=== PATIENT | female | born 1940 | race Caucasian/White ===

== ENCOUNTER → 2016-10-22 | Outpatient (CLI) | payer OTHER ==
[2016-10-22 13:00] LABS: BASO % 0.9 %; BASO ABS # 0.05 K/uL (0-0.2); COMPLETE YES; EOS % 2.4 %; HEMATOCRIT 35.2 % (37-47); IG% 0.2 %; LYMPH % 38.8 %; LYMPH ABS # 2.07 K/uL (1.2-3.4); MEAN CELL VOLUME 87.8 fL (80-100); MEAN CORPUSCULAR HEMOGLOBIN 29.7 pg (25-34); MEAN CORPUSCULAR HGB CONC 33.8 g/dl (32-36); MEAN PLATELET VOLUME 10.5 fL (7.4-10.4); MONO % 10.7 %; PLATELET COUNT 252 K/uL (130-400); RED BLOOD COUNT 4.01 M/uL (4.2-5.4); WHITE BLOOD COUNT 5.34 K/uL (4.8-10.8)
[2016-10-22 13:16] LABS: BLOOD UREA NITROGEN 17 mg/dl (7-18); BUN/CREATININE RATIO 19.4 (10-20); CALCIUM 9.2 mg/dl (8.5-10.1); CARBON DIOXIDE 27 mmol/L (21-32); CHLORIDE 105 mmol/L (98-107); CREATININE 0.86 mg/dl (0.60-1.20); GLUCOSE 162 mg/dl (70-99); PHOSPHORUS 3.6 mg/dl (2.5-4.9); POTASSIUM 3.7 mmol/L (3.5-5.1); SODIUM 142 mmol/L (136-145)
[2016-10-22 13:30] LABS: ESTIMATED AVERAGE GLUCOSE 148 mg/dl; HA1C FLAG Normal (Normal)
== END | disposition home or self-care (01) ==
LOC: C.LABMFLN 10:15
PROVIDERS: ATTEND Family Medicine
DX: E11.9 Type 2 diabetes mellitus without complications (principal); D64.9 Anemia, unspecified

== ENCOUNTER → 2017-01-22 | Outpatient (CLI) | payer OTHER ==
[2017-01-21 14:03] LABS: ESTIMATED AVERAGE GLUCOSE 151 mg/dl; HA1C FLAG Normal (Normal)
[2017-01-21 15:41] LABS: ALT/SGPT 31 U/L (12-78); AST/SGOT 20 U/L (15-37); BLOOD UREA NITROGEN 22 mg/dl (7-18); BUN/CREATININE RATIO 26.4 (10-20); CALCIUM 9.3 mg/dl (8.5-10.1); CARBON DIOXIDE 30 mmol/L (21-32); CHLORIDE 107 mmol/L (98-107); CREATININE 0.83 mg/dl (0.60-1.20); GLUCOSE 154 mg/dl (70-99); POTASSIUM 3.7 mmol/L (3.5-5.1); SODIUM 142 mmol/L (136-145)
[2017-01-21 15:42] LABS: ALB/GLOB RATIO 1.1 (0.9-2); ALKALINE PHOSPHATASE 65 U/L (45-117)
== END | disposition home or self-care (01) ==
LOC: C.LABMFLN 08:17
PROVIDERS: ATTEND Family Medicine
DX: E11.9 Type 2 diabetes mellitus without complications (principal)

== ENCOUNTER → 2017-05-06 | Outpatient (CLI) | payer OTHER ==
[2017-05-06 13:40] LABS: ESTIMATED AVERAGE GLUCOSE 169 mg/dl; HA1C FLAG Normal (Normal)
== END | disposition home or self-care (01) ==
LOC: C.LABMFLN 09:20
PROVIDERS: ATTEND Family Medicine
DX: E11.9 Type 2 diabetes mellitus without complications (principal)

== ENCOUNTER → 2017-08-26 | Outpatient (CLI) | payer OTHER ==
[2017-08-26 13:08] LABS: ESTIMATED AVERAGE GLUCOSE 157 mg/dl; HA1C FLAG Normal (Normal)
[2017-08-26 13:40] LABS: BLOOD UREA NITROGEN 20 mg/dl (7-18); BUN/CREATININE RATIO 23.6 (10-20); CALCIUM 9.2 mg/dl (8.5-10.1); CARBON DIOXIDE 29 mmol/L (21-32); CHLORIDE 106 mmol/L (98-107); CREATININE 0.85 mg/dl (0.60-1.20); GLUCOSE 108 mg/dl (70-99); POTASSIUM 3.7 mmol/L (3.5-5.1); SODIUM 138 mmol/L (136-145)
[2017-08-26 13:51] LABS: CHOLESTEROL 148 mg/dl (0-200); HDL CHOLESTEROL 49 mg/dl; LDL CHOLESTEROL CALCULATED 76 mg/dl; TRIGLYCERIDES 117 mg/dl (0-150); VERY LOW DENSITY LIPOPROT CALC 23 mg/dl
== END | disposition home or self-care (01) ==
LOC: C.LABMFLN 07:57
PROVIDERS: ATTEND Family Medicine
DX: E11.9 Type 2 diabetes mellitus without complications (principal); E03.9 Hypothyroidism, unspecified; E78.5 Hyperlipidemia, unspecified

== ENCOUNTER → 2017-12-03 | Outpatient (CLI) | payer OTHER ==
[2017-12-03 18:12] LABS: BASO % 0.6 %; BASO ABS # 0.04 K/uL (0-0.2); EOS % 2.5 %; EOS ABS # 0.17 K/uL (0-0.5); HEMATOCRIT 35.2 % (37-47); HEMOGLOBIN 11.6 g/dL (12.0-16.0); IG# 0.01 K/uL (0.00-0.02); LYMPH % 39.3 %; LYMPH ABS # 2.63 K/uL (1.2-3.4); MEAN CELL VOLUME 90.5 fL (80-100); MEAN CORPUSCULAR HEMOGLOBIN 29.8 pg (25-34); MEAN PLATELET VOLUME 10.8 fL (7.4-10.4); MONO % 8.2 %; MONO ABS # 0.55 K/uL (0.11-0.59); NEUT % 49.3 %; PLATELET COUNT 253 K/uL (130-400); RED CELL DISTRIBUTION WIDTH SD 42.7 fL (36.4-46.3)
[2017-12-03 18:35] LABS: ALBUMIN 3.6 gm/dl (3.4-5.0); ALT/SGPT 39 U/L (12-78); BLOOD UREA NITROGEN 21 mg/dl (7-18); CALCIUM 9.5 mg/dl (8.5-10.1); CARBON DIOXIDE 29 mmol/L (21-32); CREATININE 0.83 mg/dl (0.60-1.20); GLUCOSE 80 mg/dl (70-99); POTASSIUM 3.8 mmol/L (3.5-5.1); SODIUM 141 mmol/L (136-145)
[2017-12-03 18:38] LABS: ALKALINE PHOSPHATASE 67 U/L (45-117); AST/SGOT 26 U/L (15-37); TOTAL PROTEIN 7.1 gm/dl (6.4-8.2)
[2017-12-04 06:51] LABS: HEMOGLOBIN A1C 7.7 % (4.5-5.6)
== END | disposition home or self-care (01) ==
LOC: C.LABMFLN 14:52
PROVIDERS: ATTEND Family Medicine
DX: E11.9 Type 2 diabetes mellitus without complications (principal)

== ENCOUNTER 2022-03-22 05:24 | Observation (INO) ==
--- NOTE | 2022-02-21 11:34 | PAT Medication Instructions ---
Medication Instructions Date of Service February 21, 2022 Home Medications Medication Instructions Recorded lancets 33 gauge (Elizabeth Trejo #100 ea 04/28/19 Lancets) blood sugar diagnostic (Bernadetteuch #100 ea 02/16/21 Ultra Blue Test Strip) glimepiride 1 mg tablet 1 mg PO .COMPLEX #450 tab 10/16/21 calcium carbonate 600 mg-vitamin D3 5 mcg (200 unit) tablet 1 tab PO HS glimepiride 1 mg tablet 1 mg PO .COMPLEX amlodipine 2.5 mg tablet 2.5 mg PO QAM atorvastatin 40 mg tablet 40 mg PO QAM levothyroxine 75 mcg tablet 75 mcg PO QAM losartan 100 mg tablet 100 mg PO QAM metformin 500 mg tablet,extended release 24hr 1,000 mg PO QPM DO NOT take the morning of surgery losartan 100 mg tablet 100 mg PO QAM glimepiride 1 mg tablet 1 mg PO .COMPLEX Take morning of surgery With a small sip of water, OTHERWISE NOTHING TO EAT OR DRINK AFTER MIDNIGHT: amlodipine 2.5 mg tablet 2.5 mg PO QAM atorvastatin 40 mg tablet 40 mg PO QAM levothyroxine 75 mcg tablet 75 mcg PO QAM Take evening before surgery calcium carbonate 600 mg-vitamin D3 5 mcg (200 unit) tablet 1 tab PO HS glimepiride 1 mg tablet 1 mg PO .COMPLEX metformin 500 mg tablet,extended release 24hr 1,000 mg PO QPM Other Notes If you have any questions please call us at [phone] or [phone] or [phone] or [phone]
--- NOTE | 2022-02-23 13:16 | Anesthesiology Consultation ---
Date of Service February 23, 2022 Assessment & Plan (1) Encounter for pre-operative examination: - Patient acceptable risk for surgery pending surgeon-ordered PCP preop evaluation (03/09; [facility]). - COVID screening: Per assessment on 02/23: No known COVID-19 positive contacts or current COVID-19 related symptoms. Travel screen negative. Patient vaccinated. Surgeon arranging preop COVID testing. Awaiting results. - Check [facility] AM DOS Chart Review Chart Review: Patient seen in Pre Admission Testing Teaching & Discussion Pre-Anesthesia Teaching/Discussion Notes: Instructed NPO after midnight before surgery,except medications with 15 cc of water. Medication instructions provided according to the PAT guidelines. History Surgery Operation Date: 03/22/22 07:00 Proposed Procedures p Right Total Knee Arthroplasty - Rick Persaud MD Height/Weight Height: 5 ft 1 in Weight: 78 kg Allergies Allergy/AdvReac Type Severity Reaction Status Date / Time cefuroxime [From Ceftin] Allergy Severe Itching Verified 02/23/22 13:12 Penicillins Allergy Severe Hives Verified 02/21/22 09:54 Medications Home Medications Medication Instructions Recorded Confirmed Last Taken lancets 33 gauge (OneTouch Delica #100 ea 04/28/19 01/01/22 Unknown Lancets) calcium carbonate 600 mg-vitamin 1 tab PO HS tab 05/02/19 02/21/22 Unknown D3 5 mcg (200 unit) tablet blood sugar diagnostic (OneTouch #100 ea 02/16/21 01/01/22 Unknown Ultra Blue Test Strip) glimepiride 1 mg tablet 1 mg PO .COMPLEX #450 tab 10/16/21 02/21/22 Unknown amlodipine 2.5 mg tablet 2.5 mg PO QAM 02/21/22 02/21/22 Unknown atorvastatin 40 mg tablet 40 mg PO QAM 02/21/22 02/21/22 Unknown levothyroxine 75 mcg tablet 75 mcg PO QAM 02/21/22 02/21/22 Unknown losartan 100 mg tablet 100 mg PO QAM 02/21/22 02/21/22 Unknown metformin 500 mg tablet,extended 1,000 mg PO QPM 02/21/22 02/21/22 Unknown release 24hr Past Medical History Medical History Allergic rhinitis Anemia Benign essential hypertension Diabetes mellitus NIDDM Hyperlipidemia Hypothyroidism Exercise / Class Metabolic Activity II 4-5 Yardwork/Stairs/Walk up hill Past Family History Family History Mother Diabetes Myocardial infarction Father Myocardial infarction Other No family history of adverse response to anesthesia Denies family history of Ovarian cancer Prostate cancer Breast cancer Colorectal cancer Past Surgical History Surgical History H/O arthroscopy of knee Right History of cataract surgery R/L S/P colonoscopy Past Anesthesia History No Hx of Anesthesia Complications and No Family Hx of Anesthesia Complications History of PONV No Hx of PONV Social History Smoking Status: Never smoker Do You Dip or Chew Tobacco: No Hx Alcohol Use: No Hx Substance Use: No Review of Systems Patient denies chest pain, shortness of breath, dyspnea on exertion, fever, chills, cough, wheezing, palpitations. Physical Exam Vital Signs VITALS BP 149/70 P 86 TEMP 98.5 SP02 96%RA RESP 16 PHYSICAL Decreased cervical extension range of motion. Full TMJ range of motion. TMD 3 finger breaths Mallampati Score 3 Dentition: + implant (upper front) Lungs: clear throughout to auscultation Cardiac: regular rate and rhythm with occasional extra beats, no murmurs noted Spine: normal Carotid arteries: negative bruit Extremities: no edema Lab Results Anesthesia Preop Results Results Anesthesia Widget: WBC 5.94 K/uL (4.8-10.8) 02/23/22 Hgb 11.4 g/dL (12.0-16.0) L 02/23/22 Hct 35.4 % (37-47) L 02/23/22 Plt 288 K/uL (130-400) 02/23/22 Na 139 mmol/L (136-145) 02/23/22 K 4.0 mmol/L (3.5-5.1) 02/23/22 Cl 105 mmol/L (98-107) 02/23/22 CO2 27 mmol/L (21-32) 02/23/22 BUN 22 mg/dl (6-23) 02/23/22 Creat 0.87 mg/dl (0.6-1.2) 02/23/22 Glucose Level 154 mg/dl (70-99(Fasting)) H 02/23/22 PT 10.7 Seconds (9.0-12.0) 02/23/22 PTT 23.4 Seconds (21.0-31.0) 02/23/22 INR 1.0 (0.9-1.1) 02/23/22 TSH 1.918 uIu/ml (0.300-4.500) 01/01/22 HA1c 7.0 % (4.5-5.6) H 02/23/22 Urine Color Yellow 02/23/22 Urine Appearance Clear (Clear) 02/23/22 Urine pH 6.5 (4.5-7.5) 02/23/22 Urine Specific [place] 1.014 (1.000-1.030) 02/23/22 Urine Protein Negative (Negative) 02/23/22 Urine Glucose (UA) Negative (Negative) 02/23/22 Urine Ketones Negative (Negative) 02/23/22 Urine Blood Negative (Negative) 02/23/22 Urine Nitrite Negative (Negative) 02/23/22 Urine Bilirubin Negative (Negative) 02/23/22 Urine Urobilinogen Negative (Negative) 02/23/22 Urine Leukocyte Esterase Negative (Negative) 02/23/22 Blood Type A Positive 02/23/22 Antibody Screen NEGATIVE 02/23/22 Testing Electrocardiogram Date: 02/23/22 NSR with sinus arrhythmia at 68bpm. Chest X-Ray Date: 02/23/22 FINDINGS: Frontal and lateral radiographs of the chest demonstrate the cardiomediastinal silhouette to be within normal limits. The lungs are clear of alveolar opacities. There is no evidence for effusion bilaterally. There is no evidence for vascular congestion. There is no acute osseous pathology. IMPRESSION: No acute cardiopulmonary disease.
--- NOTE | 2022-03-21 06:51 | History & Physical Report ---
Date of Service March 21, 2022 Assessment & Plan (1) Primary osteoarthritis of right knee: Plan: Treatment options discussed with the patient. She has failed conservative measures. She would like to proceed with surgical intervention. Risks, benefits and alternatives to surgery including but not limited to infection, DVT, pain, stiffness, need for revision surgery, damage to blood vessels, damage to nerves, PE, , were discussed with the patient and they wish to proceed. Plan on right total knee arthroplasty scheduled for March 23 at [facility] with Dr. Persaud. Plan on aspirin 81 mg twice daily for 1 month postop for DVT prophylaxis. We will plan on outpatient PT. All questions answered. Patient will follow-up postop. History of Present Illness Chief Complaint: Right knee pain Primary Care Provider: Mallory Krishnamurthy MD 81-year-old female with past medical history significant for hypertension, DM 2, hypothyroidism who presents with ongoing right knee pain. Pain is interfering with with patient's daily activities. She has failed conservative measures. She would like to proceed with knee replacement. Patient denies headaches, sweats, fevers, chills, double vision, blurred vision, cough, sore throat, dysphagia, chest pain, sob, wheezing, n/v/d/c, numbness, tingling, fatigue, uri nary symptoms, mood disorders. ROS positive for right knee pain and stiffness. Allergies Allergy/AdvReac Type Severity Reaction Status Date / Time cefuroxime [From Ceftin] Allergy Severe Itching Verified 03/09/22 10:09 Penicillins Allergy Severe Hives Verified 03/09/22 10:09 Home Medications Medication Instructions Recorded Confirmed Type lancets 33 gauge ([employer] Delica #100 ea 04/28/19 03/09/22 Rx Lancets) calcium carbonate 600 mg-vitamin 1 tab PO HS 05/02/19 03/09/22 History D3 5 mcg (200 unit) tablet blood sugar diagnostic (Live Current Media[employer] #100 ea 02/16/21 03/09/22 Rx Ultra Blue Test Strip) amlodipine 2.5 mg tablet 2.5 mg PO QAM 02/21/22 03/09/22 History atorvastatin 40 mg tablet 40 mg PO QAM 02/21/22 03/09/22 History levothyroxine 75 mcg tablet 75 mcg PO QAM 02/21/22 03/09/22 History losartan 100 mg tablet 100 mg PO QAM 02/21/22 03/09/22 History metformin 500 mg tablet,extended 1,000 mg PO QPM 02/21/22 03/09/22 History release 24hr glimepiride 1 mg tablet See Rx Instructions PO .COMPLEX 02/26/22 03/09/22 Rx #540 tabs Past Med/Surg History Medical History Allergic rhinitis Anemia Benign essential hypertension Diabetes mellitus Hyperlipidemia Hypothyroidism Surgical History H/O arthroscopy of knee History of cataract surgery S/P colonoscopy Family History Mother Diabetes Myocardial infarction Father Myocardial infarction Other No family history of adverse response to anesthesia Denies family history of Ovarian cancer Prostate cancer Breast cancer Colorectal cancer Social History Smoking Status: Never smoker Second Hand Exposure: Yes; Hx Alcohol Use: No Hx Substance Use: No Preferred Language: Kiswahili Communication Ability: Effective Visual Impairment: Partially Limited Hearing Ability: Normal Culinary Assistant Required: No Beliefs That Will Affect Care: None marital status: Current Living Situation: Spouse current occupational status: retired Feels Safe at Home: Yes Childhood Exposure to Second-Hand Smoke: Yes caffeine: Yes (tea) Dental Care, Regularly: Yes Physical Activity Frequency: Daily Physical Activity Frequency Comment: walking Seatbelt Use: always Sunscreen Use: Yes Do you think of yourself as: straight/heterosexual Assistive Devices: Cane and Glasses Review of Systems All systems reviewed & are unremarkable except as noted in HPI & below Physical Exam Constitutional: well developed and well nourished; no acute distress Eyes: PERRL, conjunctivae normal, anicteric sclerae ENMT: external ear and nose normal, oropharynx normal Neck: trachea midline, no thyromegaly Respiratory: normal respiratory effort, lungs clear to auscultation Cardiovascular: RRR, no murmur, no edema Musculoskeletal: Right knee: Varus alignment. Tenderness medial joint line. Has mild crepitation with range of motion. Stable to valgus and varus stress test. Range of motion 20 to 100 degrees. Skin: no rashes, warm and dry Neurologic: patellar DTR's 2+ bilat, sensation intact Psychiatric: A+Ox3, euthymic affect Results & Data ([facility]) Diagnostic Findings Right knee radiographs demonstrates end-stage osteoarthritis with tricompartmental degenerative changes. Patient has [id number]-pj-msdx medial compartment.
[2022-03-22] MEDS ORDERED: TRANEXAMIC ACID 1,000 MG **IV Intra-op IV SCH (06:00)
[2022-03-22] MEDS ORDERED: GABAPENTIN 300 MG CAP PO SCH (06:00)
[2022-03-22] MEDS ORDERED: TRANEXAMIC ACID 1,000 MG **IV Pre-op IV SCH (06:00)
[2022-03-22] MEDS ORDERED: ROPIVACAINE 0.5% HCL/PF 150 MG, BUPIVACAINE 0.75% MPF 20 ML, EPINEPHrine 30MG/30ML (OR ... INFIL SCH (06:00)
[2022-03-22] MEDS ORDERED: METOCLOPRAMIDE HCL 10 MG TABLET PO SCH (06:00)
[2022-03-22] MEDS ORDERED: VANCOMYCIN HCL 1,250 MG in SODIUM CHLORIDE 0.9% 250 ML IV SCH ×2 (06:00→19:45)
[2022-03-22] MEDS ORDERED: ACETAMINOPHEN 500 MG TAB PO SCH (06:00)
[2022-03-22] MEDS ORDERED: CeleBREX 200 MG CAP PO SCH (06:00)
[2022-03-22] MEDS ORDERED: LR 500ML BOLUS, THEN 15ML/HR IV SCH (06:00)
[2022-03-22] MEDS ORDERED: FAMOTIDINE 20 MG TAB PO SCH (06:00)
[2022-03-22] MEDS ORDERED: BUPIVACAINE 0.5 % 5 MG/1 ML PF 10ML VIAL ONE (06:26)
[2022-03-22] MEDS ORDERED: ROPIVACAINE 0.5% 5 MG/ML 30 ML VIAL ONE (06:26)
[2022-03-22] MEDS ORDERED: LIDOCAINE 2% 2 ML VIAL/AMP(20MG/ML) INFIL ONE (06:46)
[2022-03-22] MEDS ORDERED: PHENYLEPHRINE 100MCG/ML 5ML SYR ONE (06:46)
[2022-03-22] MEDS ORDERED: fentaNYL citrate 100 MCG/2 ML VIAL ONE (06:46)
[2022-03-22] MEDS ORDERED: ePHEDrine sulfate 50 MG/ML AMP ONE (06:46)
[2022-03-22] MEDS ORDERED: MIDAZOLAM HCL 1 MG/ML 2ML VIAL ONE (06:46)
[2022-03-22] MEDS ORDERED: PROPOFOL IV EMULSION 10 MG/ML 20 ML VIAL IV ONE (06:46)
[2022-03-22] MEDS ORDERED: ORTHO JOINT ANESTHETIC ONE (06:58)
--- NOTE | 2022-03-22 06:58 | History & Physical Bridge Note ---
Date of Service March 22, 2022 History & Physical Bridge Note I have examined the patient, reviewed the History & Physical and in the interval since the performance of the History & Physical I have noted the following changes of clinical significance: no changes noted
[2022-03-22] MEDS ORDERED: HYDROmorphone INJ 1 MG/ML SYRINGE IV PRN (07:16)
[2022-03-22] MEDS ORDERED: ATROPINE SULFATE 0.1 MG/ML 10ML SYR IV PRN (07:16)
[2022-03-22] MEDS ORDERED: ePHEDrine sulfate 50 MG/ML AMP IV PRN (07:16)
[2022-03-22] MEDS ORDERED: fentaNYL citrate 100 MCG/2 ML VIAL IV PRN (07:16)
--- NOTE | 2022-03-22 08:56 | Operative Report ---
Post Operative Report Pre & Post Diagnosis Operation Date: 03/22/22 07:15 Pre-Op Diagnosis: Right Knee Osteoarthritis Post-Op Diagnosis: Right Knee Osteoarthritis I identified the patient and participated in the time-out.: Yes Procedure Operation Date: 03/22/22 07:15 Actual Procedures p Right Total Knee Arthroplasty(Right) - Rick Persaud MD Surgeon Rick Persaud MD Home Sales Service Professional Duong BAINS Estimated Blood Loss 5 Findings Consistent with Post-Op Diagnosis Specimens Bone cuts Drains 2 Hemovac Anesthesia Type MAC Spinal Regional Complications none Disposition Disposition: Recovery Room Indications 81-year-old female with chronic bilateral knee pain but right has more stiffness and pain than the left. X-rays show patellofemoral medial compartment osteoarthritis [id number] medial compartment. Patient has a varus knee with a flexion contracture Description of Procedure Patient was taken to the operating room placed supine on the operating table and anesthetized under spinal MAC regional block anesthesia. Exam under anesthesia demonstrated 15 degree flexion contracture with further flexion to 95 degrees and no instability and moderate obesity.. A pneumatic tourniquet was placed about the thigh of the right lower extremity. The right lower extremity was prepped and draped in usual sterile fashion. The leg was elevated exsanguinated with an Esmarch bandage and the pneumatic tourniquet was raised to 325 mm mercury. An anterior incision was made across the right knee. The skin was incised longitudinally subcutaneous flaps were elevated and an incision was made through the medial retinaculum extending up into the mid third of the quadriceps tendon and extended down to the medial tibial tubercle. Intra-articular findings demonstrated tricompartmental osteoarthritis chronic medial meniscus tear eburnated bone with ridging medial compartment moderate patellofemoral osteoarthritis. The knee was exposed by excising the infrapatellar fat pad, excising the meniscal remnants and anterior cruciate ligament. Any inflamed synovial tissue was resected. The fat pad over the anterior femur was resected for placement of the component in that area. The lateral synovial bands were release. The femur was exposed. The custom femoral cutting block was pinned in position. The distal femoral cutting block was applied. The distal femoral cut was made with the oscillating saw. I took an additional +2 off the distal femur cut due to flexion contracture. The size 6, 4-in-1 cutting block was placed. T he anterior and posterior chamfer cuts were made. The knee was extended and a subperiosteal peel lateral release was performed around the patella. The patella width was measured and width was reproduced using freehand cut technique. The 32 x 8.5 millimeter symmetrical patella was used. 3 drill holes are made for the pegs. The tibia was exposed. A custom tibial cutting block was positioned and drill holes were made for the cutting guide. Cutting guide was placed and the proximal cut was made with the oscillating saw. All osteophytes were resected. The lamina senior salesforce developer was used to assess ligamentous balance and the ligaments were balanced in extension and flexion. This required a medial release posterior medial release and pie crusting MCL to get balanced gaps. The tibia was reexposed and measured for a size E tibial component. This was externally rotated in line with the tibial tubercle and the fixation pins were drilled. The proximal tibia was fashioned with the drill and punch. The size 6 CR femoral trial was inserted. The trial MC inserts were used. The 12 mm insert gave balanced ligaments through full range of motion. The patella tracked centrally. the trials were removed. The orthomix anesthetic cocktail was injected per protocol. The knee was then copiously irrigated with pulsatile lavage saline solution. The final components were cemented with Refobacin bone cement. The final components were 6 right CR standard persona femoral component, right size E tibia, 12 MC polyethylene 4 tibia and 32 x 8.5 symmetrical polyethylene patella. After the cement cured with the knee in full extension the Betadine soak was used per protocol. The knee joint was copiously irrigated with pulsatile lavage saline solution . 2 drains were brought out laterally and connected to a Hemovac. The quadriceps tendon and medial retinaculum were closed with interrupted [id number] #1 Vicryl sutures. The knee was taken through a full range of motion and repair was secure. Range of motion was 0 through 125 degrees. The subcutaneous tissues were closed with 2-0 Vicryl sutures and skin was closed with rafa. Silverlon sterile dressing was applied and the patient tolerated the procedure well. Duong BAINS my physician court assistant participated as blood bank assistant and was integral part in all aspects of the procedure, he assisted in soft tissue retraction, instrument management ,leg positioning, the closure and will participate in the postoperative care of the patient. I attest to the content of the Intraoperative Record and any orders documented therein. Any exceptions are noted below.
--- NOTE | 2022-03-22 10:06 | Anesthesiology Progress Note ---
Date of Service March 22, 2022 Anesthesia Post Procedure Vital Signs Vital Signs: Temp Pulse Resp BP Pulse Ox O2 Del Method O2 Flow Rate 03/22/22 10:00 62 16 132/57 L 94 Nasal Cannula 2 03/22/22 09:50 36.4 C L 68 16 126/60 96 Nasal Cannula 2 03/22/22 09:40 68 18 115/59 L 96 Oxymask 5 03/22/22 09:30 36.1 C L 65 18 97/52 L 96 Oxymask 5 03/22/22 06:03 36.6 C 77 18 153/64 H 97 Room Air Transfer of Care Handoff Completed per policy Notes Mental Status: alert / awake / arousable and participated in evaluation Nausea / Vomiting: adequately controlled Pain: adequately controlled Airway Patency, RR, SpO2: stable & adequate BP & HR: stable & adequate Hydration State: stable & adequate Neuraxial Anesthesia: was administered and sensory block is resolving Anesthetic Complications: no major complications apparent and Pt Satisfied with anesthetic care
[2022-03-22] MEDS ORDERED: ONDANSETRON INJ 2 MG/ML 2 ML VIAL ONE (10:10)
[2022-03-22] MEDS ORDERED: ONDANSETRON INJ 2 MG/ML 2 ML VIAL IV STA (10:12)
--- NOTE | 2022-03-22 10:14 | XRay Report ---
RIGHT KNEE 2 VIEWS History: Right total knee arthroplasty. Degenerative arthritis. Postop. FINDINGS: The patient is status post a right total knee arthroplasty. The hardware is intact. No frac ture or dislocation. Skin rafa and surgical drains are in place. IMPRESSION: Right total knee arthroplasty. No evidence for hardware complication. ACT 112: Negative or not required by law. Electronically signed by: Yonatan Caba M.D. 03/22/2022 10:12 AM
[2022-03-22] MEDS ORDERED: MAGNESIUM HYDROXIDE SUSP 30 ML UDC PO PRN (11:37)
[2022-03-22] MEDS ORDERED: PHARMACY GLYCEMIC MGMT CONSULT PRN (11:37)
[2022-03-22] MEDS ORDERED: ONDANSETRON INJ 2 MG/ML 2 ML VIAL IV PRN (11:37)
[2022-03-22] MEDS ORDERED: METOCLOPRAMIDE HCL INJ 5 MG/ML 2 ML VIAL IV PRN (11:37)
[2022-03-22] MEDS ORDERED: NALOXONE HCL 0.4 MG/1 ML VIAL/CARP IV PRN (11:37)
[2022-03-22] MEDS ORDERED: bisacodyL 10 MG SUPP PR PRN (11:37)
[2022-03-22] MEDS ORDERED: VANCOMYCIN CONSULT ACTIVE PRN (11:37)
[2022-03-22] MEDS ORDERED: HYDROmorphone INJ 0.5 MG/0.5 ML SYR IV PRN (11:37)
[2022-03-22] MEDS ORDERED: GLUCAGON FOR INJ 1 MG VIAL IM PRN (12:15)
[2022-03-22] MEDS ORDERED: GLUCOSE 40% GEL 15 GM TUBE PO PRN (12:15)
[2022-03-22] MEDS ORDERED: CARBOHYDRATES FOR HYPOGLYCEMIA PO PRN (12:15)
[2022-03-22] MEDS ORDERED: DEXTROSE 50% 50 ML SYRINGE IV PRN (12:15)
[2022-03-22] MEDS ORDERED: GLUCOSE 10 TAB/TUBE PO PRN (12:15)
[2022-03-22] MEDS ORDERED: LANTUS PER UNIT CHARGE SQ ONE (12:15)
--- NOTE | 2022-03-22 12:16 | Hospitalist Consultation ---
Date of Consultation March 22, 2022 Assessment & Plan (1) Primary osteoarthritis of right knee: S/p R. TKA with Dr. Persaud on 03/22. EWL 5 mL per op note. - At risk for acute blood loss anemia - Will monitor and give IV Venofer if needed. - DVT ppx per primary team: ASA 81 mg PO BID - Normal post-op care per primary team (2) Benign essential hypertension: BP is 125/70 after surgery. - Continue home amlodipine & losartan (3) Diabetes mellitus: Last A1c was 7.0% indicating good control. - Hold home metformin and glimepiride - Sliding scale insulin - Glycemic pharmacy consult entered (4) Hyperlipidemia: - Continue statin (5) Hypothyroidism: TSH was 1.9 in 03/2022. No signs/symptoms of hypo-/hyperthyroidism. - Continue home Synthroid 75 mcg Hospitalist team will chart check labs and vitals tomorrow, but if no abnormalities, will sign off at that time. Feel free to discharge patient without any home medication changes when she is surgically ready for discharge. Thank you for the consult and please reach out with any questions or concerns! History of Present Illness Attending Physician: Rick Persaud MD History of Present Illness 81yo F w/ hx of HTN, DM who presents as a routine medical consult after a R. TKA with Dr. Persaud on 03/22. The patient's block is still in place, and she is not in any pain. In fact, her anesthesia is still pretty strong, and she was asleep when I arrived and took some gentle shaking to wake her up. She failed a trial of conservative therapy, and elected to have the knee replaced. No complications during the surgery per my review of the operative report. Allergies Allergy/AdvReac Type Severity Reaction Status Date / Time cefuroxime [From Ceftin] Allergy Severe Itching Verified 03/22/22 05:53 Penicillins Allergy Severe Hives Verified 03/22/22 05:53 Home Medications Medication Instructions Recorded Confirmed Type lancets 33 gauge ([employer] Delyvan #100 ea 04/28/19 03/09/22 Rx Lancets) calcium carbonate 600 mg-vitamin 1 tab PO HS 05/02/19 03/22/22 History D3 5 mcg (200 unit) tablet blood sugar diagnostic (O[employer] #100 ea 02/16/21 03/09/22 Rx Ultra Blue Test Strip) amlodipine 2.5 mg tablet 2.5 mg PO QAM 02/21/22 03/22/22 History atorvastatin 40 mg tablet 40 mg PO QAM 02/21/22 03/22/22 History levothyroxine 75 mcg tablet 75 mcg PO QAM 02/21/22 03/22/22 History losartan 100 mg tablet 100 mg PO QAM 02/21/22 03/22/22 History metformin 500 mg tablet,extended 1,000 mg PO QPM 02/21/22 03/22/22 History release 24hr glimepiride 1 mg tablet See Rx Instructions PO .COMPLEX 02/26/22 03/22/22 Rx #540 tabs Patient History Medical History Allergic rhinitis Anemia Benign essential hypertension Diabetes mellitus NIDDM Hyperlipidemia Hypothyroidism Surgical History H/O arthroscopy of knee Right History of cataract surgery R/L S/P colonoscopy Family History Mother Diabetes Myocardial infarction Father Myocardial infarction Other No family history of adverse response to anesthesia Denies family history of Ovarian cancer Prostate cancer Breast cancer Colorectal cancer Social History Smoking Status: Never smoker Second Hand Exposure: Yes; Do You Dip or Chew Tobacco: No; Tobacco Cessation Education Requested by Patient: No Hx Alcohol Use: No Hx Substance Use: No Preferred Language: Yakut Communication Ability: Effective Visual Impairment: Partially Limited Hearing Ability: Normal Epoxy Fabrication Supervisor Required: No Beliefs That Will Affect Care: None marital status: Current Living Situation: Spouse current occupational status: retired Other Information That Helps Us Care for You: No Feels Safe at Home: Yes Safety Concerns: Feels Safe At This Time Childhood Exposure to Second-Hand Smoke: Yes caffeine: Yes (tea) Dental Care, Regularly: Yes Physical Activity Frequency: Daily Physical Activity Frequency Comment: walking Seatbelt Use: always Sunscreen Use: Yes Do you think of yourself as: straight/heterosexual Assistive Devices: Cane and Glasses Assistive Devices Comment: cane for distance only. Review of Systems Review of Systems: All systems reviewed & are unremarkable except as noted in HPI & below Physical Exam Constitutional: WD/WN, vitals as above Eyes: EOM intact bilaterally; no conjunctival abnormality ENMT: external ear and nose normal, oropharynx normal Neck: trachea midline, no thyromegaly normal visual inspection Respiratory: normal respiratory effort, lungs clear to auscultation no respiratory distress Cardiovascular: RRR, no murmur, no edema Gastrointestinal (Abdomen): Inspection/Auscultation: abdomen normal to inspection; abdomen not distended Musculoskeletal: Right knee in bandage. Drain in place. Right toes are neurovascularly intact. Skin: no rashes, warm and dry Neurologic: moves all extremities and awake Psychiatric: Orientation: alert, oriented to person and cooperative Results & Data Results & Data ([facility]) Vital Signs (Past 12 Hours) Vital Signs Temp Pulse Resp BP Pulse Ox O2 Del Method O2 Flow Rate 03/22/22 12:03 64 16 124/69 100 Nasal Cannula 2 03/22/22 11:30 62 16 135/73 100 Nasal Cannula 2 03/22/22 11:00 64 16 143/68 H 99 Nasal Cannula 2 03/22/22 10:54 36.4 C L 03/22/22 10:40 64 18 134/59 L 96 Nasal Cannula 2 03/22/22 10:25 61 18 138/62 96 Nasal Cannula 2 03/22/22 10:10 89 18 145/69 H 97 Nasal Cannula 2 03/22/22 10:00 62 16 132/57 L 94 Nasal Cannula 2 03/22/22 09:50 36.4 C L 68 16 126/60 96 Nasal Cannula 2 03/22/22 09:40 68 18 115/59 L 96 Oxymask 5 03/22/22 09:30 36.1 C L 65 18 97/52 L 96 Oxymask 5 03/22/22 06:03 36.6 C 77 18 153/64 H 97 Room Air PG Care Time/CCT Total # of Minutes Spent Total Time Spent with Patient: Total time spent is greater than 50% in coordination of care (as documented) at patient's floor/unit and/or counseling patient: Coding Level of Care Code 56739 Office/OBS Consult Lvl 3 Diagnoses Primary osteoarthritis of right knee M17.11 Benign essential hypertension I10 Diabetes mellitus E11.9 Hyperlipidemia E78.5 Hypothyroidism E03.9
--- NOTE | 2022-03-22 12:20 | Pharmacy Report ---
Pharmacy Glycemic Short Note 2 - Date of Service March 22, 2022 - Glycemic Short BSG Results (Last 24 hours): 03/22/22 03/22/22 03/22/22 06:29 09:33 12:07 POC Glucose 104 H 93 164 H OUTPATIENT ANTIDIABETIC REGIMEN: * Metformin 1000 mg PO qPM * Glimepiride 4 mg PO qAM, 2 mg PO qPM HbA1c: 7% (02/23/22) ASSESSMENT: * MT is a 81 year old female POD #0 s/p right total knee arthroplasty * No perioperative steroids administered * Preop BSG of 104 mg/dL, received metformin and glimepiride yesterday * Postop BSG of 164 mg/dL * Will give conservative dose of Lantus and moderate Novolog scale PLAN FOR INPATIENT GLYCEMIC CONTROL: * Hold outpatient oral diabetes medications * consider restart tomorrow * Basal insulin * Lantus 8 units (~0.1 unit/kg) SC x 1 * Bolus insulin * NovoLog per scale ACHS or Q6hrs while NPO * Goal Range: Low 110 mg/dL - High 140 mg/dL * Correction Factor: 30 mg/dL/unit * Nutritional / Prandial insulin per carb ratio of 1 unit per 10 grams CHO consumed
[2022-03-22] MEDS: SODIUM CHLORIDE 0.9% 1000ML 1,000 ML IV SCH ×2 (12:51→21:53)
[2022-03-22] MEDS: ACETAMINOPHEN 500 MG TAB PO SCH ×2 (13:19→22:00)
[2022-03-22] MEDS: INSULIN ASPART PER UNIT SC SCH ×2 (13:20→20:32)
[2022-03-22] MEDS ORDERED: INSULIN ASPART PER UNIT SC ONE (18:15)
[2022-03-22] MEDS: DOCUSATE SODIUM 100 MG CAP PO SCH (20:29)
[2022-03-22] MEDS: CALCIUM 600MG + VIT D 400 IU TAB PO SCH (20:29)
[2022-03-22] MEDS: CeleBREX 200 MG CAP PO SCH (20:30)
[2022-03-22] MEDS: SENNA 8.6 MG TAB PO SCH (20:30)
[2022-03-22] MEDS: ASPIRIN 81 MG ECTAB PO SCH (20:30)
[2022-03-23] MEDS: ACETAMINOPHEN 500 MG TAB PO SCH ×3 (05:03→21:11)
[2022-03-23] MEDS: LEVOTHYROXINE SODIUM 75 MCG TABLET PO SCH (06:09)
--- NOTE | 2022-03-23 07:43 | Orthopedic Progress Note ---
Date of Service March 23, 2022 Assessment & Plan (1) Primary osteoarthritis of right knee: Plan: Postop day #1 right total knee arthroplasty -PT/OT -DVT prophylaxis: SCDs, teds, aspirin 81 mg twice daily -Pain management as written -A.m. labs are pending -Discharge planning: Plan on outpatient therapy on discharge. We will recheck her after therapy today for possible discharge home. Admission and Anticipated Discharge Date Admission Date: March 22, 2022 Subjective Patient is postop day 1 right total knee. She is doing well this morning. Mild pain in her knee but is controlled. No other complaints. Denies chest pain, shortness of breath, lightheadedness, nausea/vomiting/diarrhea. Review of Systems Review of Systems: All systems reviewed & are unremarkable except as noted in Subjective Physical Exam Physical Exam: Right knee: Dressing is clean, dry, intact. Hemovac in place. Toes are mobile with good dorsiflexion. No calf tenderness. Distally neurovascular status and sensation intact. Constitutional: well developed and well nourished; no acute distress Results & Data ([facility]) Vital Signs (Past 12 Hours) Vital Signs Temp Pulse Resp BP Pulse Ox O2 Del Method 03/23/22 07:25 36.5 C 69 16 154/64 H 94 Room Air 03/23/22 02:54 36.7 C 73 18 150/73 H 94 Room Air 03/22/22 22:40 36.8 C 66 16 130/71 95 Room Air
[2022-03-23 09:07] LABS: Hematocrit (blood only) 30.3 % (34.1-44.9); Hemoglobin 9.8 g/dl (12.0-16.0); Mean Corpuscular Hemoglobin 29.6 pg (25.0-34.0); Mean Corpuscular Hgb Conc 32.3 g/dL (32.0-36.0); Mean Corpuscular Volume 91.5 fL (80.0-100.0); Mean Platelet Volume 11.2 fL (9.4-12.3); Platelet Count 219 K/uL (130-400); RDW Coefficient of Variation 12.1 % (11.5-14.5); RDW Standard Deviation 40.8 fL (36.4-46.3); Red Blood Count 3.31 M/uL (3.93-5.22); White Blood Count 9.01 K/ul (4.8-10.8)
[2022-03-23] MEDS: amLODIPine BESYLATE 5 MG TAB PO SCH (09:14)
[2022-03-23] MEDS: ATORVASTATIN 40 MG TAB PO SCH (09:14)
[2022-03-23] MEDS: MULTIVITAMIN TAB PO SCH (09:14)
[2022-03-23] MEDS: ASPIRIN 81 MG ECTAB PO SCH ×2 (09:14→21:12)
[2022-03-23] MEDS: LOSARTAN POTASSIUM 50 MG TAB PO SCH (09:15)
[2022-03-23] MEDS: DOCUSATE SODIUM 100 MG CAP PO SCH ×2 (09:15→21:12)
[2022-03-23] MEDS: CeleBREX 200 MG CAP PO SCH ×2 (09:15→21:10)
[2022-03-23] MEDS: INSULIN ASPART PER UNIT SC SCH ×4 (09:18→21:40)
[2022-03-23 09:29] LABS: BUN Creatinine Ratio 28.9 (10-20); Calcium 8.7 mg/dl (8.5-10.1); Creatinine Clr Calc Pharmacy 43.5 ml/min; Est GFR (African American) 63.9 ml/min; Est GFR (Non-African American) 55.2 ml/min
[2022-03-23] MEDS: oxyCODONE HCL IR 5 MG TAB (IMMEDIATE RELEASE) PO PRN ×3 (12:46→21:17)
[2022-03-23] MEDS ORDERED: INSULIN ASPART PER UNIT SC ONE (14:30)
--- NOTE | 2022-03-23 15:12 | Pharmacy Report ---
Pharmacy Glycemic Short Note 2 - Date of Service March 23, 2022 - Glycemic Short BSG Results (Last 24 hours): 03/22/22 03/22/22 03/23/22 18:06 20:28 08:06 Glucose POC Glucose 166 H 154 H 76 03/23/22 03/23/22 03/23/22 08:41 12:03 12:04 Glucose 125 H POC Glucose 339 H* 318 H* 03/23/22 14:12 Glucose POC Glucose 299 H OUTPATIENT ANTIDIABETIC REGIMEN: * Metformin 1000 mg PO qPM * Glimepiride 4 mg PO qAM, 2 mg PO qPM HbA1c: 7% (02/23/22) ASSESSMENT: 03/23/22 * BSGs trended down nicely postoperatively yesterday * Received 8 units of Lantus and 6 units of Novolog * Fasting BSG of 76 mg/dL this morning * Surprisingly, lunch BSG of 339 mg/dL with a recheck of 318 mg/dL * Unclear rationale for this, per RN patient had not been eating immediately prior to BSG check * Of note, patient likely should have received Novolog with breakfast, but refused by patient per RN * Despite hyperglycemia, will hold off on basal insulin given borderline low this morning * Likely discharge in the morning 03/22/22: * MT is a 81 year old female POD #0 s/p right total knee arthroplasty * No perioperative steroids administered * Preop BSG of 104 mg/dL, received metformin and glimepiride yesterday * Postop BSG of 164 mg/dL * Will give conservative dose of Lantus and moderate Novolog scale PLAN FOR INPATIENT GLYCEMIC CONTROL: * Hold outpatient oral diabetes medications * Basal insulin * hold * Bolus insulin * NovoLog per scale ACHS or Q6hrs while NPO * Goal Range: Low 110 mg/dL - High 140 mg/dL * Correction Factor: 30 mg/dL/unit * Nutritional / Prandial insulin per carb ratio of 1 unit per 10 grams CHO consumed
[2022-03-23] MEDS ORDERED: metFORMIN HCL 500 MG TAB PO SCH (18:30)
[2022-03-23] MEDS: CALCIUM 600MG + VIT D 400 IU TAB PO SCH (21:12)
[2022-03-23] MEDS: SENNA 8.6 MG TAB PO SCH (21:12)
[2022-03-24] MEDS ORDERED: INSULIN ASPART PER UNIT SC SCH
[2022-03-24] MEDS: oxyCODONE HCL IR 5 MG TAB (IMMEDIATE RELEASE) PO PRN (06:15)
[2022-03-24] MEDS: ACETAMINOPHEN 500 MG TAB PO SCH ×2 (06:15→13:54)
[2022-03-24] MEDS: LEVOTHYROXINE SODIUM 75 MCG TABLET PO SCH (06:16)
[2022-03-24] MEDS: LOSARTAN POTASSIUM 50 MG TAB PO SCH (06:19)
[2022-03-24] MEDS: amLODIPine BESYLATE 5 MG TAB PO SCH (06:19)
--- NOTE | 2022-03-24 09:43 | Orthopedic Progress Note ---
Date of Service March 24, 2022 Assessment & Plan (1) Primary osteoarthritis of right knee: Plan: Postop day #2 right total knee arthroplasty -PT/OT -DVT prophylaxis: SCDs, teds, aspirin 81 mg twice daily -Pain management as written -Progressing well with her PT today. -Discharge planning: Plan on outpatient therapy on discharge. We will recheck her later this AM to see how her nausea is. Possible dc to home today. Admission and Anticipated Discharge Date Admission Date: March 22, 2022 Supervising Physician Co-Signing Physician Notes Patient seen and examined. Agree with HERSON Guadarrama's note as above. She had some nausea this morning that precluded her from eating breakfast, but this has improved and she is eating some crackers currently without further nausea. She did very well with therapy. She is hoping to go home today. We will plan for discharge home as long as she does not have return of significant nausea later this morning. Subjective POD 1 Pt had an episode of N/V this morning. Feeling better now. No other complaints. Pain controlled. Pt was ambulating in the hallway with PT. Physical Exam Physical Exam: Tere dressing intact. Calves soft,NT. NV intact. Toes mobile. Results & Data ([facility]) Vital Signs (Past 12 Hours) Vital Signs Pulse Resp BP Pulse Ox O2 Del Method 03/24/22 06:23 85 16 183/66 H 96 Room Air 03/23/22 23:20 176/72 H 03/23/22 22:18 86 16 181/69 H 94 Room Air
[2022-03-24] MEDS: CeleBREX 200 MG CAP PO SCH (10:01)
[2022-03-24] MEDS: DOCUSATE SODIUM 100 MG CAP PO SCH (10:01)
[2022-03-24] MEDS: ASPIRIN 81 MG ECTAB PO SCH (10:01)
[2022-03-24] MEDS: MULTIVITAMIN TAB PO SCH (10:02)
[2022-03-24] MEDS: ATORVASTATIN 40 MG TAB PO SCH (10:02)
[2022-03-24] MEDS: INSULIN ASPART PER UNIT SC SCH ×2 (10:05→13:54)
--- NOTE | 2022-03-25 18:44 | Discharge Summary ---
Date of Service March 25, 2022 Admission HPI Per Admitting Provider 81-year-old female with past medical history significant for hypertension, DM 2, hypothyroidism who presents with ongoing right knee pain. Pain is interfering with with patient's daily activities. She has failed conservative measures. She would like to proceed with knee replacement. Patient denies headaches, sweats, fevers, chills, double vision, blurred vision, cough, sore throat, dysphagia, chest pain, sob, wheezing, n/v/d/c, numbness, tingling, fatigue, urinary symptoms, mood disorders. ROS positive for right knee pain and stiffness. Admission Exam Per Admitting Provider Constitutional: well developed and well nourished; no acute distress Eyes: PERRL, conjunctivae normal, anicteric sclerae ENMT: external ear and nose normal, oropharynx normal Neck: trachea midline, no thyromegaly Respiratory: normal respiratory effort, lungs clear to auscultation Cardiovascular: RRR, no murmur, no edema Musculoskeletal: Right knee: Varus alignment. Tenderness medial joint line. Has mild crepitation with range of motion. Stable to valgus and varus stress test. Range of motion 20 to 100 degrees. Skin: no rashes, warm and dry Neurologic: patellar DTR's 2+ bilat, sensation intact Psychiatric: A+Ox3, euthymic affect Principal Diagnosis right knee osteoarthritis Discharge Exam Physical Exam: Tere dressing intact. Calves soft,NT. NV intact. Toes mobile. Discharge Data Allergies Allergy/AdvReac Type Severity Reaction Status Date / Time cefuroxime [From Ceftin] Allergy Severe Itching Verified 03/22/22 05:53 Penicillins Allergy Severe Hives Verified 03/22/22 05:53 Consultations 03/20/22 11:18 Consult Hospitalist Routine Procedures Performed Operation Date: 03/22/22 07:15 Actual Procedures p Right Total Knee Arthroplasty(Right) - Rick Persaud MD Ordered Studies 03/22/22 05:00 US - OR guided needle placemen Routine Hospital Course (1) Primary osteoarthritis of right knee: Postop day #2 right total knee arthroplasty -PT/OT -DVT prophylaxis: SCDs, teds, aspirin 81 mg twice daily -Pain management as written -Progressing well with her PT today. -Discharge planning: Plan on outpatient therapy on discharge. We will recheck her later this AM to see how her nausea is. Possible dc to home today. Postop day #1 right total knee arthroplasty -PT/OT -DVT prophylaxis: SCDs, teds, aspirin 81 mg twice daily -Pain management as written -A.m. labs are pending -Discharge planning: Plan on outpatient therapy on discharge. We will recheck her after therapy today for possible discharge home. Lab Results 03/22/22 03/22/22 03/22/22 Range/Units 05:35 06:29 09:33 WBC (4.8-10.8) K/ul RBC (3.93-5.22) M/uL Hgb (12.0-16.0) g/dl Hct (34.1-44.9) % MCV (80.0-100.0) fL MCH (25.0-34.0) pg MCHC (32.0-36.0) g/dL RDW Std Deviation (36.4-46.3) fL RDW Coeff of Marie (11.5-14.5) % Plt Count (130-400) K/uL MPV (9.4-12.3) fL Sodium (136-145) mmol/L Potassium (3.5-5.1) mmol/L Chloride (98-107) mmol/L Carbon Dioxide (21-32) mmol/L Anion Gap (3-11) BUN (6-23) mg/dl Creatinine (0.6-1.2) mg/dl Est Cr Clr Drug Dosing ml/min Est GFR ( Amer) ml/min Est GFR (Non-Af Amer) ml/min BUN/Creatinine Ratio (10-20) Glucose (70-99(Fasting)) mg/dl POC Glucose 104 H 93 (70-99) mg/dl Calcium (8.5-10.1) mg/dl SARS-CoV-2, RNA, NAAT NEGATIVE (NEGATIVE) 03/22/22 03/22/22 03/22/22 Range/Units 12:07 18:06 20:28 WBC (4.8-10.8) K/ul RBC (3.93-5.22) M/uL Hgb (12.0-16.0) g/dl Hct (34.1-44.9) % MCV (80.0-100.0) fL MCH (25.0-34.0) pg MCHC (32.0-36.0) g/dL RDW Std Deviation (36.4-46.3) fL RDW Coeff of Marie (11.5-14.5) % Plt Count (130-400) K/uL MPV (9.4-12.3) fL Sodium (136-145) mmol/L Potassium (3.5-5.1) mmol/L Chloride (98-107) mmol/L Carbon Dioxide (21-32) mmol/L Anion Gap (3-11) BUN (6-23) mg/dl Creatinine (0.6-1.2) mg/dl Est Cr Clr Drug Dosing ml/min Est GFR ( Amer) ml/min Est GFR (Non-Af Amer) ml/min BUN/Creatinine Ratio (10-20) Glucose (70-99(Fasting)) mg/dl POC Glucose 164 H 166 H 154 H (70-99) mg/dl Calcium (8.5-10.1) mg/dl SARS-CoV-2, RNA, NAAT (NEGATIVE) 03/23/22 03/23/22 03/23/22 Range/Units 08:06 08:41 08:41 WBC 9.01 (4.8-10.8) K/ul RBC 3.31 L (3.93-5.22) M/uL Hgb 9.8 L (12.0-16.0) g/dl Hct 30.3 L (34.1-44.9) % MCV 91.5 (80.0-100.0) fL MCH 29.6 (25.0-34.0) pg MCHC 32.3 (32.0-36.0) g/dL RDW Std Deviation 40.8 (36.4-46.3) fL RDW Coeff of Marie 12.1 (11.5-14.5) % Plt Count 219 (130-400) K/uL MPV 11.2 (9.4-12.3) fL Sodium 139 (136-145) mmol/L Potassium 4.0 (3.5-5.1) mmol/L Chloride 107 (98-107) mmol/L Carbon Dioxide 26 (21-32) mmol/L Anion Gap 6 (3-11) BUN 28 H (6-23) mg/dl Creatinine 0.97 (0.6-1.2) mg/dl Est Cr Clr Drug Dosing 43.5 ml/min Est GFR ( Amer) 63.9 ml/min Est GFR (Non-Af Amer) 55.2 ml/min BUN/Creatinine Ratio 28.9 H (10-20) Glucose 125 H (70-99(Fasting)) mg/dl POC Glucose 76 (70-99) mg/dl Calcium 8.7 (8.5-10.1) mg/dl SARS-CoV-2, RNA, NAAT (NEGATIVE) 03/23/22 03/23/22 03/23/22 Range/Units 12:03 12:04 14:12 WBC (4.8-10.8) K/ul RBC (3.93-5.22) M/uL Hgb (12.0-16.0) g/dl Hct (34.1-44.9) % MCV (80.0-100.0) fL MCH (25.0-34.0) pg MCHC (32.0-36.0) g/dL RDW Std Deviation (36.4-46.3) fL RDW Coeff of Marie (11.5-14.5) % Plt Count (130-400) K/uL MPV (9.4-12.3) fL Sodium (136-145) mmol/L Potassium (3.5-5.1) mmol/L Chloride (98-107) mmol/L Carbon Dioxide (21-32) mmol/L Anion Gap (3-11) BUN (6-23) mg/dl Creatinine (0.6-1.2) mg/dl Est Cr Clr Drug Dosing ml/min Est GFR ( Amer) ml/min Est GFR (Non-Af Amer) ml/min BUN/Creatinine Ratio (10-20) Glucose (70-99(Fasting)) mg/dl POC Glucose 339 H* 318 H* 299 H (70-99) mg/dl Calcium (8.5-10.1) mg/dl SARS-CoV-2, RNA, NAAT (NEGATIVE) 03/23/22 03/23/22 03/23/22 Range/Units 17:06 20:48 23:56 WBC (4.8-10.8) K/ul RBC (3.93-5.22) M/uL Hgb (12.0-16.0) g/dl Hct (34.1-44.9) % MCV (80.0-100.0) fL MCH (25.0-34.0) pg MCHC (32.0-36.0) g/dL RDW Std Deviation (36.4-46.3) fL RDW Coeff of Marie (11.5-14.5) % Plt Count (130-400) K/uL MPV (9.4-12.3) fL Sodium (136-145) mmol/L Potassium (3.5-5.1) mmol/L Chloride (98-107) mmol/L Carbon Dioxide (21-32) mmol/L Anion Gap (3-11) BUN (6-23) mg/dl Creatinine (0.6-1.2) mg/dl Est Cr Clr Drug Dosing ml/min Est GFR ( Amer) ml/min Est GFR (Non-Af Amer) ml/min BUN/Creatinine Ratio (10-20) Glucose (70-99(Fasting)) mg/dl POC Glucose 300 H 124 H 110 H (70-99) mg/dl Calcium (8.5-10.1) mg/dl SARS-CoV-2, RNA, NAAT (NEGATIVE) 03/24/22 03/24/22 Range/Units 08:02 12:05 WBC (4.8-10.8) K/ul RBC (3.93-5.22) M/uL Hgb (12.0-16.0) g/dl Hct (34.1-44.9) % MCV (80.0-100.0) fL MCH (25.0-34.0) pg MCHC (32.0-36.0) g/dL RDW Std Deviation (36.4-46.3) fL RDW Coeff of Marie (11.5-14.5) % Plt Count (130-400) K/uL MPV (9.4-12.3) fL Sodium (136-145) mmol/L Potassium (3.5-5.1) mmol/L Chloride (98-107) mmol/L Carbon Dioxide (21-32) mmol/L Anion Gap (3-11) BUN (6-23) mg/dl Creatinine (0.6-1.2) mg/dl Est Cr Clr Drug Dosing ml/min Est GFR ( Amer) ml/min Est GFR (Non-Af Amer) ml/min BUN/Creatinine Ratio (10-20) Glucose (70-99(Fasting)) mg/dl POC Glucose 169 H 230 H (70-99) mg/dl Calcium (8.5-10.1) mg/dl SARS-CoV-2, RNA, NAAT (NEGATIVE) Total Time Total Time Spent Total Time Spent (In Minutes): 20 Discharge Plan Discharge Items Patient Disposition: Home - Self-Care Reason For Visit: Right Knee Osteoarthritis Discharge Diagnosis: Right Knee Osteoarthritis Activity: Per Instructions section Weightbearing: Right weightbearing Weightbearing Comment: as tolerated with walker Non-emergency contact: Surgeon Call non-emergency contact if: you have any medication questions, your pain is not controlled, your pain is concerning for you, you have a fever, your temperature is above 101, your wound has increased redness and your wound has increased drainage Follow-up/Referrals: Mallory Krishnamurthy MD [Primary Care Provider] - Rick Persaud MD [Surgeon] - (Follow up with Dr Persaud in 2 weeks from the day of your surgery for your first post operative visit.) Diet: Carb Consistent or DM2 Addtl Attending Provider Instructions: ACTIVITY RECOMMENDATIONS: SELF CARE INSTRUCTIONS AFTER TOTAL KNEE REPLACEMENT A. You may need to continue a physical therapy program after discharge from the hospital. There are several options available to you. Your doctor will assist you in selecting the best one for you. 1. An out-patient facility 2 to 3 times a week for therapy or home therapy. 2. Continue working on all exercises taught to you in the hospital. Your goals should be to increase bending of your knee to 90 degrees and beyond and to fully straighten your knee. B. You may progress at your own pace from walking with a walker or crutches to a cane; then to no assistive devices. C. Make walking a part of your daily routine. Be up as much as comfortable with rest periods throughout the day. Rest with leg elevation is very important. Use the ice wrap frequently for the first 3-4 weeks. D. There are no restrictions on activities. You may ride in a car, shop, participate in grades 1 through 5 teacher and all social activities. E. Wear the long elastic stockings (BLAIRE hose) 20 hours a day for 2 weeks after surgery. They can be removed several times a day for laundering and for a bath. F. You may shower, no tub baths until cleared by your doctor. SPECIAL CARE INSTRUCTIONS: VERY IMPORTANT TO READ AND REVIEW A. There are a few signs you need to watch for after you are home. Call [facility] if you notice any of the followin. Increased severe knee pain. Some pain is expected especially when you exercise. 2. Increased swelling in your leg or knee; pain or swelling of the calf muscle in either lower leg. 3. Any fluid drainage from the incision. 4. Shortness of breath or chest pain. B. Please call [facility] at if you have any concerns or questions about your operation or recovery. The doctor or his nurse will return your call promptly. C. You must take antibiotics before dental work, bladder, bowel or other surgery. Your doctor will provide you with a permanent care to carry describing this precaution. IMPORTANT: * REMEMBER TO TAKE ASPIRIN, 81 MG, TWICE DAILY FOR 4 WEEKS UNLESS OTHERWISE DIRECTED. THIS IS YOUR BLOOD THINNER.. * CALL IF INCREASED PAIN, REDNESS, DRAINAGE OR FEVER GREATER THAT 101. * WEAR BLAIRE HOSE 20 HOURS PER DAY FOR 2 WEEKS. This is a large adhesive bandage that contains silver ions. This helps your incision heal by fighting off bacteria and protecting it from the outside environment. You are permitted to shower with this dressing. This will remain on your incision for 7 days and then should be removed. Some visible blood or drainage through the dressing window is normal. If there is significant drainage or leaking noted before the 7 days notify your doctor's office immediately. Once removed, keep incision clean and dry. If there is any drainage or redness noted, please call your surgeon. If redness or drainage is noted, please call your surgeon. . FOLLOW UP VISIT: If appointment is not already scheduled: Please call [facility] to make a follow-up appointment for 2 weeks after your surgery at . Stand-Alone Forms: [employer], Smoking Cessation Medications and DC Order Prescriptions: New acetaminophen [Tylenol Extra Strength] 500 mg Tablet 1,000 mg PO Q8 Qty: 60 0RF aspirin 81 mg Tablet,Delayed Release (Dr/Ec) 81 mg PO BID Qty: 60 0RF celecoxib [Celebrex] 200 mg Capsule 200 mg PO BID Qty: 60 0RF oxycodone 5 mg Tablet 5 - 10 mg PO .Q4h-6h MDD 6 PRN (Reason: pain) Qty: 30 0RF Rx Instructions: Ongoing therapy, Dr. Persaud supervising Continued glimepiride 1 mg tablet See Rx Instructions PO .COMPLEX Qty: 540 3RF Rx Instructions: 4 tabs in the am, 2 tabs in the pm PO; (DME) lancets [OneTouch Delica Lancets] 33 gauge misc See Dose Instructions .ROUTE .MEDSUPPLY Qty: 100 3RF Dose Instruction: As directed Rx Instructions: test blood sugars once daily DX E11.9 calcium carbonate-vitamin D3 600 mg(1,500mg) -200 unit tablet 1 tab PO HS (DME) OneTouch Ultra Blue Test Strip Strip See Dose Instructions .ROUTE .MEDSUPPLY Qty: 100 3RF Dose Instruction: As directed Rx Instructions: test blood sugars once daily DX E11.9 atorvastatin 40 mg tablet 40 mg PO QAM amlodipine 2.5 mg tablet 2.5 mg PO QAM levothyroxine 75 mcg tablet 75 mcg PO QAM losartan 100 mg tablet 100 mg PO QAM metformin 500 mg tablet extended release 24hr 1,000 mg PO QPM Discharge Orders: Discharge Order (Routine); Ordered 03/24/22 Ordered By: Klever Guadarrama Admission Data Admit Date/Time: 03/22/22 09:35 Attending Provider: Rick Persaud Admit Provider: Rick Persaud Primary Care Provider: Mallory Krishnamurthy Other Providers: Brandon Bennett Other Interventions: Discharge Summary Assessment (RN) Last Done: 03/24/22 14:03
== END 2022-03-24 14:30 | disposition home or self-care (01) ==
LOC: ASU 05:24 → 3W 05:24